=== PATIENT | male | born 1975 | race Caucasian/White ===

== ENCOUNTER 2016-08-01 12:46 | Emergency (ER) | payer OTHER ==
[2016-08-01 13:06] VITALS: BP 127/78
--- NOTE | 2016-08-01 13:38 | UC ---
Skin Complaint HPI - HPI Summary HPI Summary: for three days he has had a tender patch of suprapubic skin with swelling and redness. He has had a hx of ingrown hair in the past. No fevers or chills. - History of Current Complaint Chief Complaint: UCSkin Time Seen by Provider: 08/01/16 13:17 Stated Complaint: LOWER ADB SKIN PAIN Hx Obtained From: Patient Onset/Duration: Gradual Onset, Lasting Days Skin Exposure Onset/Duration: Days Ago Onset Severity: Mild Current Severity: Moderate Location: Discrete Character: Swelling, Pain, Redness, Raised, Painful Aggravating: Touch Alleviating: Nothing Associated Signs & Symptoms: Positive: Tenderness. Negative: Nausea, Vomiting, Numbness, Thirst, Diaphoresis, Weakness, Pallor, Shivering, Fever, Chills, Cough , Wheezing, Chest Pain, Hoarseness, Throat Tightening, Rash - Allergy/Home Medications Allergies/Adverse Reactions: Allergies Allergy/AdvReac Type Severity Reaction Status Date / Time No Known Allergies Allergy Verified 08/01/16 13:06 Home Medications: Home Medications Montelukast Sodium TAB* [Singulair TAB*] 10 mg PO DAILY 08/01/16 [History Confirmed 08/01/16] Review of Systems All Other Systems Reviewed And Are Negative: Yes PMH/Surg Hx/FS Hx/Imm Hx Previously Healthy: Yes Endocrine History Of: Denies: Diabetes - Surgical History Surgical History: Yes Surgery Procedure, Year, and Place: hernia surgery 09/15 - Family History Known Family History: Positive: Other - no known mrsa hx. - Social History Lives: With Family - with acosta. Alcohol Use: Occasionally Substance Use Type: None Smoking Status (MU): Never Smoked Tobacco Physical Exam Triage Information Reviewed: Yes Appearance: Well-Appearing, No Pain Distress, Well-Nourished Vital Signs: Initial Vital Signs Temp 99.6 F 08/01/16 13:03 Pulse 94 08/01/16 13:03 Resp 16 08/01/16 13:03 BP 127/78 08/01/16 13:03 Pulse Ox 100 08/01/16 13:03 Vital Signs Reviewed: Yes Eye Exam: Normal ENT Exam: Normal Neck exam: Normal Respiratory Exam: Normal Cardiovascular Exam: Normal Abdominal Exam: Normal Musculoskeletal Exam: Normal Neurological Exam: Normal Psychological Exam: Normal Skin Exam: Other - suprapubic patch of redness with underlying induration. in the center is a dime sized abscess with fluctuance. The patch is tender and pink and is the size of a small orange. Course/Dx - Course Course Of Treatment: We have a long discussion regarding the best course of action and we make it clear that drainage with packing is our safest treatment along with IM antibiotics, warm packs and po antibiotics with close follow up. He is visibly and admittedly nervious contemplating this option. I explain how we can use local lidocaine as well as give him ativan and/or morphine for pain control and anxiolysis. He talks to his fiancee about these options and I give him some privacy. When I return, he is still not willing to stay for the procedure. I tell him forhis own safety, this will require close follow up and he agrees to return here tomorrow. In the meantime, we will treat as aggressively as possible. - Differential Diagnoses - Skin Complaint Differential Diagnoses: Abscess, Allergic Reaction, Anaphylaxis, Angioedema, Cellulitis, Contact Dermatitis, Frostbite, Lymphadenitis, Lymphangitis, MRSA, Poison Rama, Poison Energy, Scabies, Systemic Illness, Tinea - Diagnoses Provider Diagnoses: abcess. cellulitis of the lower abd wall. Discharge - Discharge Plan Condition: Fair Disposition: HOME Prescriptions: Sulfamethox/Trimethoprim DS* [Bactrim DS 800/160 TAB*] 2 tab PO BID #40 tab Patient Education Materials: Cellulitis (ED) Referrals: Viky Joya MD [Primary Care Provider] - Additional Instructions: return here tomorrow for re evaluation as you agreed. Warm pack as we discussed.
[2016-08-01] MEDS ORDERED: cefTRIAXone VIAL(*) 1,000 MG VIAL IM ONE (13:40)
[2016-08-01] MEDS ORDERED: Lidocaine 1% INJ* 10 MG/ML 30 ML SDV INJ ONE (13:43)
[2016-08-01] MEDS ORDERED: Lidocaine 1%* 5 ML VIAL INJ ONE ×2 (13:47→13:54)
== END 2016-08-01 14:32 | disposition home or self-care (01) ==
LOC: UCCORT 12:46
DX: L02.211 Cutaneous abscess of abdominal wall (principal); L03.311 Cellulitis of abdominal wall
CPT/HCPCS: 96372; 99212; G0463; J0696; J2001

== ENCOUNTER 2016-08-02 12:06 | Emergency (ER) | payer OTHER ==
[2016-08-02 12:35] VITALS: BP 114/71
[2016-08-02] MEDS ORDERED: cefTRIAXone VIAL(*) 250 MG VIAL IM ONE (12:44)
[2016-08-02] MEDS ORDERED: Lidocaine 1% MPF* 2 ML VIAL ONE (13:04)
--- NOTE | 2016-08-02 13:08 | UC ---
Skin Complaint HPI - HPI Summary HPI Summary: SEEN YESTERDAY FOR CELLULITIS/ABSCESS IN RIGHT LOWER ABDOMEN AT BELT LINE. REFUSED I & D YESTERDAY, BUT AGREED TO ANTIBIOTIC TREATMENT AND CLOSE FOLLOW UP TODAY. TODAY AREA OF REDNESS AND SIZE OF ABSCESS SEEM TO BE IMPROVING. NO FEVERS. NO ABDOMINAL PAIN. - History of Current Complaint Chief Complaint: UCSkin Time Seen by Provider: 08/02/16 12:29 Stated Complaint: RE-CHECK SKIN COMPLAINT Hx Obtained From: Patient Onset/Duration: Gradual Onset, Lasting Days, Still Present Skin Exposure Onset/Duration: Days Ago Onset Severity: Moderate Current Severity: Mild Location: Discrete Character: Redness Aggravating: Touch Alleviating: Nothing Associated Signs & Symptoms: Positive: Tenderness. Negative: Fever, Chills, Throat Tightening, Rash, Drainage, Red Streaks, Joint Swelling Related History: Other: - POSSIBLE FOLLICULITIS - Allergy/Home Medications Allergies/Adverse Reactions: Allergies Allergy/AdvReac Type Severity Reaction Status Date / Time No Known Allergies Allergy Verified 08/02/16 12:29 Home Medications: Home Medications Acetaminophen TAB* [Tylenol TAB*] 975 mg PO Q6H PRN 08/02/16 [History Confirmed 08/02/16] Review of Systems Constitutional: Negative Skin: Rash Eyes: Negative ENT: Negative Respiratory: Negative Cardiovascular: Negative Gastrointestinal: Negative Genitourinary: Negative Motor: Negative Neurovascular: Negative Musculoskeletal: Negative Neurological: Negative Psychological: Negative All Other Systems Reviewed And Are Negative: Yes PMH/Surg Hx/FS Hx/Imm Hx Previously Healthy: Yes Endocrine History Of: Denies: Diabetes - Surgical History Surgical History: Yes Surgery Procedure, Year, and Place: hernia surgery 09/15 - Family History Known Family History: Positive: Other - no known mrsa hx. - Social History Occupation: Employed Full-time Lives: With Family Alcohol Use: Occasionally Substance Use Type: None Smoking Status (MU): Never Smoked Tobacco Physical Exam Triage Information Reviewed: Yes Appearance: Well-Appearing, No Pain Distress, Well-Nourished Vital Signs: Initial Vital Signs Temp 97.8 F 08/02/16 12:30 Pulse 74 08/02/16 12:30 Resp 16 08/02/16 12:30 BP 114/71 08/02/16 12:30 Pulse Ox 99 08/02/16 12:30 Vital Signs Reviewed: Yes Eye Exam: Normal ENT Exam: Normal ENT: Positive: Normal ENT inspection, Hearing grossly normal, TMs normal Dental Exam: Normal Neck exam: Normal Respiratory Exam: Normal Respiratory: Positive: Chest non-tender, Lungs clear, Normal breath sounds, No respiratory distress, No accessory muscle use Cardiovascular Exam: Normal Cardiovascular: Positive: RRR, No Murmur, Pulses Normal Abdomen Description: Positive: No Organomegaly, Soft, Other: - INDURATED ABSCESS RIGHT LOWER QUADRANT OF ABDOMEN Musculoskeletal Exam: Normal Musculoskeletal: Positive: Strength Intact Neurological Exam: Normal Psychological Exam: Normal Skin: Positive: Other - RLQ INDURATED ABSCESS Course/Dx - Course Course Of Treatment: SEEN YESTERDAY. REFUSED I&D. AREA SEEMS TO BE IMPROVING. PATIENT AGREED TO PHOTODOCUMENT AREA AND CONTINUE ANTIBIOTIC REGIMENT. TO FOLLOW UP IN THREE DAYS, OR IF CONDITION FAILS TO IMPROVE, OR IF NEW SYMPTOMS DEVELOP. - Differential Diagnoses - Skin Complaint Differential Diagnoses: Abscess, Cellulitis - Diagnoses Provider Diagnoses: RLQ ABSCESS/CELLULITIS Discharge - Discharge Plan Condition: Stable Disposition: HOME Patient Education Materials: Cellulitis (ED), Abscess (ED) Referrals: CARLEEN Hill [Primary Care Provider] - Additional Instructions: AREA SEEMS TO BE IMPROVING WITH ANTIBIOTIC THERAPY. PLEASE PHOTODOCUMENT AREA DAILY, CONTINUE TAKING ANTIBIOTIC REGIMENT AND RETURN SATURDAY OR SATURDAY FOR RE EVALUATION OR IF CONDITION CHANGES OR WORSENS Images Front/Back of Body, Lg ([place]): 1 - CELLULITIS/ABSCESS HERE
== END 2016-08-02 13:30 | disposition home or self-care (01) ==
LOC: UCCORT 12:06
DX: L02.211 Cutaneous abscess of abdominal wall (principal); L03.311 Cellulitis of abdominal wall
CPT/HCPCS: 96372; 99212; G0463; J0696

== ENCOUNTER 2016-08-03 20:18 | Emergency (ER) | payer OTHER ==
[2016-08-03 20:44] VITALS: BP 124/62
--- NOTE | 2016-08-03 22:38 | UC ---
Skin Complaint HPI - HPI Summary HPI Summary: 40 M returns for 3rd visit to [facility] for lower abd wall abscess c/o increased pain. Pt was seen first on 08/01/[address] Denney and received Ceftriaxone 1gm IM and was started on Bactrim DS 2po bid. Dr Denney advised pt that he thought the abscess needed to be drained, but pt was reluctant, and anxious about the procedure, so decided that he wanted to try antibiotics first. Pt returned yesterday 08/02/16 for evaluation, and saw DONNY Alarcon, received another 1gm dose of Ceftriaxone IM and was continued on the Bactrim. Pt was still reluctant to have it drained. Pt states he was riding in the car for several hours today and c/o increased pain so he came for evaluation again. No fever. States he is taking the antibiotics as directed. States he does not know if it has drained on its own. No hx MRSA. 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 Negative: Drainage, Red Streaks - Allergy/Home Medications Allergies/Adverse Reactions: Allergies Allergy/AdvReac Type Severity Reaction Status Date / Time No Known Allergies Allergy Verified 08/03/16 20:44 Review of Systems Constitutional: Negative Skin: Rash - red indurated area Eyes: Negative ENT: Negative Respiratory: Negative Cardiovascular: Negative Gastrointestinal: Negative Genitourinary: Negative Motor: Negative Neurovascular: Negative Musculoskeletal: Negative Neurological: Negative Psychological: Negative All Other Systems Reviewed And Are Negative: Yes PMH/Surg Hx/FS Hx/Imm Hx Previously Healthy: Yes Endocrine History Of: Denies: Diabetes - Surgical History Surgical History: Yes Surgery Procedure, Year, and Place: hernia surgery 09/15 - Family History Known Family History: Positive: Other - no known mrsa hx. - Social History Occupation: Employed Full-time Alcohol Use: Occasionally Substance Use Type: None Smoking Status (MU): Never Smoked Tobacco Physical Exam Triage Information Reviewed: Yes Appearance: Well-Nourished, Ill-Appearing, Pain Distress Vital Signs: Initial Vital Signs Temp 99.8 F 08/03/16 20:41 Pulse 92 08/03/16 20:41 Resp 18 08/03/16 20:41 BP 124/62 08/03/16 20:41 Pulse Ox 99 08/03/16 20:41 Vital Signs Reviewed: Yes Eyes: Positive: Conjunctiva Clear ENT: Positive: Normal ENT inspection Neck: Positive: Supple Respiratory: Positive: No respiratory distress Cardiovascular: Positive: RRR, Pulses Normal, Brisk Capillary Refill Abdomen Description: Positive: No Organomegaly, Soft, Other: - redness approx 12 cm with induration approx 10cm with "head". No definite drainage. No fluctuance. Red streak extending distally toward penis. No genital swelling.. Negative: Nontender - tender at site of redness and induration, suprapubic at "belt line"., Distended, Guarding, Hepatomegaly, McBurney's Point Tenderness, Peritoneal Signs, Pulsatile Mass, Splenomegaly Musculoskeletal: Positive: Strength Intact, ROM Intact Neurological: Positive: Alert, Muscle Tone Normal Psychological Exam: Normal Skin: Positive: significant lesion(s) - abscess/redness/induration as described above Course/Dx - Course Course Of Treatment: 2 prior charts reviewed. discussed with pt. Advised that after 2 days antibiotics there is still a large area of induration and it appears as if he is getting a red streak extending toward the penis, and that drainage is still recommended. Pt was reluctant for this on the 2 previous day. Advised pt that because of the previous antibiotics and the induration, it is difficult to assess if there is actually a fluid/pus collection or if it is only induration. However because it does not appear to be improving I recommend that he go to the ED for further evaluation, where they can obtain labs, do IV antibiotics if needed, advanced imaging to assess size and extent of the possible abscess, and use conscious sedation if needed for the procedure. Pt texted with his fiance and they agree to go to [facility] ED for further evaluation. - Differential Diagnoses - Skin Complaint Differential Diagnoses: Abscess, Cellulitis, MRSA - Diagnoses Provider Diagnoses: abdominal wall abscess - Physician Notification/Consults Time Discussed With Above Provider: 22:20 - Dr Meño Lombardo at [facility] ED Instructed by Provider To: MD Will See In ED Discharge - Discharge Plan Condition: Stable Disposition: AGAINST MEDICAL ADVICE Discharge Disposition Comment: pt will go to [facility] ED by private car
== END 2016-08-03 22:30 | disposition left against medical advice (07) ==
LOC: UCCORT 20:18
DX: L02.211 Cutaneous abscess of abdominal wall (principal)
CPT/HCPCS: 99212; G0463